=== PATIENT | male | born 1965 | race Caucasian/White ===

== ENCOUNTER → 2018-07-24 | Outpatient (REF) | payer MEDICAID ==
[2018-07-24 14:50] LABS: CREATININE FOR GFR 1.47 MG/DL (0.70-1.30)
[2018-07-24 14:51] LABS: ALBUMIN 3.3 GM/DL (3.2-5.2); CALCIUM LEVEL 8.3 MG/DL (8.5-10.1); GLOMERULAR FILTRATION RATE 53.1 (>56); PHOSPHORUS LEVEL 3.4 MG/DL (2.5-4.9); URIC ACID 6.1 MG/DL (3.5-7.2)
[2018-07-24 14:52] LABS: BASO # 0.1 10^3/uL (0.0-0.2); BASO % 0.5 % (0.0-1.0); EOS # 0.7 10^3/uL (0.0-0.50); EOS % 6.8 % (0.0-3.0); HEMATOCRIT 43.6 % (42.0-52.0); HEMOGLOBIN 14.3 g/dl (13.5-17.5); LYMPH # 1.3 10^3/uL (1.5-4.5); LYMPH % 13.8 % (24.0-44.0); MEAN CORPUSCULAR HEMOGLOBIN 32.2 pg (27.0-33.0); MEAN CORPUSCULAR HGB CONC 32.8 g/dl (32.0-36.5); MEAN CORPUSCULAR VOLUME 98.2 fl (80.0-96.0); MONO # 0.8 10^3/uL (0.0-0.8); MONO % 8.5 % (0.0-5.0); NEUTROPHILS # 6.8 10^3/uL (1.8-7.7); NEUTROPHILS % 69.8 % (36.0-66.0); PLATELET COUNT, AUTOMATED 235 10^3/uL (150-450); RED BLOOD COUNT 4.44 10^6/uL (4.30-6.10); WHITE BLOOD COUNT 9.7 10^3/uL (4.0-10.0)
[2018-07-24 14:59] LABS: APPEARANCE, URINE CLEAR (CLEAR); BACTERIA, URINE AUTO NEGATIVE (NEGATIVE); BILIRUBIN, URINE AUTO NEGATIVE (NEGATIVE); BLOOD, URINE BLOOD NEGATIVE (NEGATIVE); COLOR, URINE YELLOW (YELLOW); GLUCOSE, URINE (UA) AUTO NEGATIVE (NEGATIVE); KETONE, URINE AUTO NEGATIVE (NEGATIVE); LEUKOCYTE ESTERASE, URINE AUTO NEGATIVE (NEGATIVE); NITRITE, URINE AUTO NEGATIVE (NEGATIVE); PROTEIN, URINE AUTO NEGATIVE (NEGATIVE); RBC, URINE AUTO 0 /HPF (0-3); SPECIFIC GRAVITY URINE AUTO 1.019 (1.002-1.035); SQUAMOUS EPITHELIAL CELL UR AU 0 /HPF (0-6); UROBILINOGEN, URINE AUTO 0.2 mg/dL (0.0-2.0); WBC, URINE AUTO 0 /HPF (0-3)
== END ==
LOC: M LAB REF 13:26
PROVIDERS: ATTEND Internal Medicine Nephrology
DX: N18.3 Chronic kidney disease, stage 3 (moderate) (principal)

== ENCOUNTER → 2018-10-29 | Outpatient (REF) | payer OTHER, MEDICAID ==
[2018-10-29 20:39] LABS: BASO # 0.1 10^3/uL (0.0-0.2); BASO % 0.6 % (0.0-1.0); EOS # 0.4 10^3/uL (0.0-0.50); EOS % 4.3 % (0.0-3.0); HEMATOCRIT 39.4 % (42.0-52.0); LYMPH # 0.9 10^3/uL (1.5-4.5); LYMPH % 10.1 % (24.0-44.0); MEAN CORPUSCULAR HEMOGLOBIN 32.5 pg (27.0-33.0); MEAN CORPUSCULAR VOLUME 98.5 fl (80.0-96.0); MONO # 0.7 10^3/uL (0.0-0.8); MONO % 7.5 % (0.0-5.0); NEUTROPHILS # 6.7 10^3/uL (1.8-7.7); NEUTROPHILS % 77.2 % (36.0-66.0); PLATELET COUNT, AUTOMATED 246 10^3/uL (150-450); WHITE BLOOD COUNT 8.7 10^3/uL (4.0-10.0)
[2018-10-29 20:46] LABS: ALBUMIN 3.4 GM/DL (3.2-5.2); BILIRUBIN,TOTAL 0.3 MG/DL (0.2-1.0); CALCIUM LEVEL 8.2 MG/DL (8.5-10.1); CHOLESTEROL RISK RATIO 3.52 (<5); CREATININE FOR GFR 1.83 MG/DL (0.70-1.30); FREE T4 0.95 NG/DL (0.76-1.46); GLOMERULAR FILTRATION RATE 41.3 (>56); THYROID STIMULATING HORMONE 0.269 uIU/ML (0.358-3.740); TOTAL 25(OH) VITAMIN D 33.4 NG/ML (30.0-100.0); TOTAL PROTEIN 6.9 GM/DL (6.4-8.2)
[2018-10-29 21:22] LABS: HEMOGLOBIN A1c 5.7 %
== END ==
LOC: M LAB REF 18:32
PROVIDERS: ATTEND Nurse Practitioner Family
DX: Z13.9 Encounter for screening, unspecified (principal)

== ENCOUNTER 2019-08-31 12:12 | Emergency (ER) | payer OTHER ==
[~2019-08-31] VITALS: Ht 165.1 cm; Wt 65.9 kg
[2019-08-31 12:57] LABS: BASO # 0.1 10^3/uL (0.0-0.2); BASO % 0.6 % (0.0-1.0); EOS # 0.1 10^3/uL (0.0-0.5); EOS % 1.6 % (0.0-3.0); HEMATOCRIT 53.9 % (42.0-52.0); HEMOGLOBIN 17.7 g/dl (13.5-17.5); MEAN CORPUSCULAR HEMOGLOBIN 31.1 pg (27.0-33.0); MEAN CORPUSCULAR HGB CONC 32.8 g/dl (32.0-36.5); MEAN CORPUSCULAR VOLUME 94.6 fl (80.0-96.0); MONO # 0.5 10^3/uL (0.0-0.8); MONO % 6.7 % (0.0-5.0); NEUTROPHILS % 77.6 % (36.0-66.0); PLATELET COUNT, AUTOMATED 251 10^3/uL (150-450); WHITE BLOOD COUNT 7.7 10^3/uL (4.0-10.0)
[2019-08-31 13:08] LABS: INR 0.98; PARTIAL THROMBOPLASTIN TIME 27.9 SECONDS (25.0-38.4); PROTHROMBIN TIME 12.7 SECONDS (11.8-14.0)
[2019-08-31 13:30] LABS: CK-MB VALUE MASS 1.5 NG/ML (<3.6); CPK CREATINE PHOSPHOKINASE 73 U/L (39-308); MB/CK RELATIVE INDEX 2.05 (< OR =4); TROPONIN I < 0.02 NG/ML (< 0.10)
--- NOTE | 2019-08-31 13:32 | REP ---
Clinical: Chest pain . Comparison: None . Technique: Portable AP view. Findings: The mediastinum and cardiac silhouette are normal. The lung aviles are clear and without acute consolidation, effusion, or pneumothorax. The skeletal structures are intact and normal. Impression: 1. No acute cardiopulmonary process. Electronically Signed by Rl Dawkins MD 08/31/2019 01:23 P
[2019-08-31] MEDS ORDERED: METHADONE 10 MG TAB (S0109) PO ONE ×2 (14:30→18:00)
[2019-08-31] MEDS ORDERED: TIZA2TAB6 PO (14:47)
[2019-08-31] MEDS ORDERED: METO1TAB33 PO (14:47)
[2019-08-31] MEDS ORDERED: SYMB16INH INH (14:47)
[2019-08-31] MEDS ORDERED: MED REC COMMENT (14:47)
[2019-08-31] MEDS ORDERED: VENTAER INH (14:47)
[2019-08-31] MEDS ORDERED: NS 1,000 ML IV ONE ×2 (15:00→18:00)
[2019-08-31] MEDS ORDERED: ACETAMINOPHEN 500 MG TAB PO ONE (15:45)
--- NOTE | 2019-08-31 16:57 | REP ---
Clinical: Flank pain. Technique: Real time fontana scale ultrasound examination using curved array transducer. Findings: The patient is known to be status post right nephrectomy. Evaluation of the left kidney is limited due to overlying bowel gas. The kidney measures approximately 9.2 x 4.1 x 6.1 cm and there is a 5.8 x 4.4 x 2.7 cm upper pole hypodense area which cannot be further characterized. No obvious hydronephrosis or nephrolithiasis. Bladder appears normal and the left ureteral jet is identified. Impression: 1. Prior right nephrectomy. 2. Significantly limited evaluation of the left kidney and 5.8 cm upper pole left renal mass cannot definitively be excluded. Electronically Signed by Rl Dawkins MD 08/31/2019 04:49 P
[2019-08-31 17:53] LABS: CK-MB VALUE MASS < 1.0 NG/ML (<3.6); CPK CREATINE PHOSPHOKINASE 51 U/L (39-308); MB/CK RELATIVE INDEX 1.96 (< OR =4); TROPONIN I < 0.02 NG/ML (< 0.10)
[2019-08-31 19:18] LABS: D-DIMER QUANT 507.95 ng/ml (<500)
--- NOTE | 2019-08-31 19:33 | ECGEPIP ---
[facility] - ED Test Date: 2019-08-31 Pat Name: SELENA VILLANUEVA Department: Room: - Gender: Male Heel Emery Buffer: paty : 1965 Requested By: Archana Dowling Order Number: [id number] Reading MD: Archana Dowling Measurements Intervals [place] Rate: 109 P: 46 NC: 162 QRS: -28 QRSD: 86 T: 79 QT: 327 QTc: 442 Interpretive Statements SINUS TACHYCARDIA WITH FIRST DEGREE AV BLOCK BORDERLINE LEFT AXIS DEVIATION NONSPECIFIC ST & T-WAVE ABNORMALITY ABNORMAL RHYTHM ECG DELAYED R WAVE PROGRESSION NO PRIOR ECG FOR COMPARISON Electronically Signed on 08-31-2019 19:33:02 EDT by Archana Dowling
--- NOTE | 2019-08-31 19:43 | ECGEPIP ---
[facility] - ED Test Date: 2019-08-31 Pat Name: SELENA VILLANUEVA Department: Room: - Gender: Male Manager Security: sandy : 1965 Requested By: SANJUANA MCDERMOTT Order Number: [id number] Reading MD: Archana Dowling Measurements Intervals [place] Rate: 90 P: 38 MD: 168 QRS: -9 QRSD: 86 T: 65 QT: 371 QTc: 455 Interpretive Statements SINUS RHYTHM NONSPECIFIC T-WAVE ABNORMALITY BORDERLINE LEFT AXIS DEVIATION DELAYED R WAVE PROGRESSION CW 08/31/[address] T WAVE CHANGES Electronically Signed on 08-31-2019 19:42:53 EDT by Archana Dowling
[2019-08-31] MEDS ORDERED: METOPROLOL SUCC (TopROL XL) 100MG *XL* TAB PO ONE (20:15)
[2019-08-31 20:40] VITALS: BP 177/99
[2019-09-01] MEDS ORDERED: METO1TAB33 PO (00:10)
[2019-09-01 00:19] VITALS: BP 145/84
--- NOTE | 2019-09-01 09:18 | ED PDOC ---
Post-Departure Follow-Up estuardo castillo faxed formal report of renal us for fu Archana Soni MD September 01, 2019 09:18
== END 2019-09-01 00:33 | disposition home or self-care (01) ==
LOC: M ED 12:12
DX: R07.9 Chest pain, unspecified (principal); M79.10 Myalgia, unspecified site; R94.31 Abnormal electrocardiogram [ECG] [EKG]; I12.9 Hypertensive chronic kidney disease with stage 1 through stage 4 chronic kidney disease, or unspecified chronic kidney disease; I71.9 Aortic aneurysm of unspecified site, without rupture; J44.9 Chronic obstructive pulmonary disease, unspecified; Z90.5 Acquired absence of kidney; F17.210 Nicotine dependence, cigarettes, uncomplicated; Z79.51 Long term (current) use of inhaled steroids; Z79.899 Other long term (current) drug therapy
CPT/HCPCS: 36415; 71045; 76775; 80047; 81001; 82550; 82553; 84484; 85025; 85379; 85610; 85730; 86850; 86900; 86901; 93005; 93041; 94760; 96360; 96361; 99285; U0002

== ENCOUNTER 2023-04-16 02:21 | Emergency (ER) | payer OTHER ==
[~2023-04-16] VITALS: Ht 165.1 cm; Wt 65.7 kg
[~2023-04-16 02:21] MED LIST: MED REC COMMENT; METO1TAB33 PO; SYMB16INH INH; TIZA1TAB12 PO; VENTAER INH
[2023-04-16 04:01] LABS: BASO # 0.1 10^3/uL (0.0-0.2); BASO % 0.5 % (0.0-1.0); HEMOGLOBIN 14.4 g/dl (13.5-17.5); LYMPH % 10.2 % (24.0-44.0); MEAN CORPUSCULAR HEMOGLOBIN 30.9 pg (27.0-33.0); MEAN CORPUSCULAR HGB CONC 32.7 g/dl (32.0-36.5); MEAN CORPUSCULAR VOLUME 94.4 fl (80.0-96.0); MONO # 0.8 10^3/uL (0.0-0.8); MONO % 7.7 % (2.0-8.0); NEUTROPHILS % 71.4 % (36.0-66.0); PLATELET COUNT, AUTOMATED 225 10^3/uL (150-450); RED BLOOD COUNT 4.66 10^6/uL (4.30-6.10); WHITE BLOOD COUNT 9.8 10^3/uL (4.0-10.0)
[2023-04-16 04:05] LABS: VENOUS BASE EXCESS -1.4 (-2.0-2.0); VENOUS HCO3 25.3 MMOL/L (23.0-27.0); VENOUS O2 SATURATION 56.6 % (60.0-80.0); VENOUS PARTIAL PRESSURE O2 29.8 mmHg (30.0-50.0); VENOUS PH 7.322 UNITS (7.330-7.430); VENOUS STANDARD HCO3 22.2 MMOL/L; VENOUS TOTAL CO2 26.8 MMOL/L (24.0-28.0)
[2023-04-16 04:25] LABS: ALBUMIN 3.3 G/DL (3.2-5.2); ALKALINE PHOSPHATASE 83 U/L (46-116); ALT/SGPT 24 U/L (7.0-40); AST/SGOT 21 U/L (<34); BILIRUBIN,DIRECT 0.1 MG/DL (<0.4); BILIRUBIN,TOTAL 0.4 MG/DL (0.3-1.2); BLOOD UREA NITROGEN 23 MG/DL (9-23); CALCIUM LEVEL 8.7 MG/DL (8.5-10.1); CARBON DIOXIDE LEVEL 27 MMOL/L (20-31); CHLORIDE LEVEL 106 MMOL/L (98-107); CREATININE FOR GFR 1.14 MG/DL (0.70-1.30); GLOMERULAR FILTRATION RATE > 60.0 (>56); GLUCOSE, FASTING 100 MG/DL (60-100); POTASSIUM SERUM 4.7 MMOL/L (3.5-5.1); SODIUM LEVEL 141 MMOL/L (136-145); TOTAL PROTEIN 6.1 G/DL (5.7-8.2)
[2023-04-16 04:29] LABS: CPK CREATINE PHOSPHOKINASE 93 U/L (46-171); MB/CK RELATIVE INDEX 2.15 (< OR =4)
[2023-04-16 06:05] LABS: CK-MB VALUE MASS 2.5 NG/ML (<3.6)
[2023-04-16 06:06] LABS: MB/CK RELATIVE INDEX 3.01 (< OR =4)
[2023-04-16] MEDS ORDERED: methylPREDNISolone 125MG 2ML VIAL IV ONE (07:25)
[2023-04-16] MEDS: IPRATROPIUM 0.5MG/ALBUTEROL 2.5MG INH SOL UD 3ML (DUONEB) NEB SCH ×3 (07:56→09:13)
[2023-04-16] MEDS ORDERED: METOPROLOL SUCC (TopROL XL) 100MG *XL* TAB PO ONE (08:40)
[2023-04-16 09:14] VITALS: O2SAT 98
[2023-04-16 09:15] VITALS: BP 184/104
[2023-04-16 11:22] VITALS: BP 176/84; TEMP 98.6; O2SAT 97
== END 2023-04-16 11:09 | disposition home or self-care (01) ==
LOC: EDBD 02:21 → M ED 02:21
DX: J45.901 Unspecified asthma with (acute) exacerbation (principal); I10 Essential (primary) hypertension; I71.9 Aortic aneurysm of unspecified site, without rupture; Z90.5 Acquired absence of kidney; F17.200 Nicotine dependence, unspecified, uncomplicated; F11.10 Opioid abuse, uncomplicated; Z79.899 Other long term (current) drug therapy
CPT/HCPCS: 71045; 80048; 80076; 82550; 82553; 82803; 83605; 84484; 85025; 87040; 87486; 87581; 87633; 87798; 93005; 93041; 94640; 94760; 96374; 99285; J2930

== ENCOUNTER 2023-04-18 00:26 | Emergency (ER) | payer OTHER ==
[~2023-04-18] VITALS: Ht 165.1 cm; Wt 68.8 kg
[2023-04-18] MEDS ORDERED: NS 1,000 ML IV ONE (01:15)
[2023-04-18 01:31] LABS: BASO % 0.2 % (0.0-1.0); EOS % 0.1 % (0.0-3.0); HEMATOCRIT 46.1 % (42.0-52.0); HEMOGLOBIN 15.1 g/dl (13.5-17.5); LYMPH # 2.3 10^3/uL (1.5-5.0); LYMPH % 13.6 % (24.0-44.0); MEAN CORPUSCULAR HEMOGLOBIN 31.2 pg (27.0-33.0); MEAN CORPUSCULAR HGB CONC 32.8 g/dl (32.0-36.5); MEAN CORPUSCULAR VOLUME 95.2 fl (80.0-96.0); MONO # 1.3 10^3/uL (0.0-0.8); MONO % 7.6 % (2.0-8.0); NEUTROPHILS # 13.1 10^3/uL (1.5-8.5); NEUTROPHILS % 78.1 % (36.0-66.0); PLATELET COUNT, AUTOMATED 299 10^3/uL (150-450); RED BLOOD COUNT 4.84 10^6/uL (4.30-6.10); WHITE BLOOD COUNT 16.8 10^3/uL (4.0-10.0)
[2023-04-18] MEDS ORDERED: KETOROLAC 30 MG/ML 1ML VIAL IV ONE (02:25)
[2023-04-18] MEDS ORDERED: METHADONE 10MG TAB PO ONE (02:35)
[2023-04-18] MEDS ORDERED: METHADONE 5MG TAB PO ONE (02:35)
[2023-04-18] MEDS ORDERED: IPRATROPIUM 0.5MG/ALBUTEROL 2.5MG INH SOL UD 3ML (DUONEB) NEB ONE ×2 (02:45)
[2023-04-18] MEDS ORDERED: VALPROATE SOD INJ 1,000 MG in D5W 50 ML IV ONE (03:45)
[2023-04-18] MEDS ORDERED: DEPA500T2 PO (03:46)
[2023-04-18] MEDS ORDERED: METO1TAB33 PO (03:47)
[2023-04-18 04:20] VITALS: BP 184/98
[2023-04-18 04:48] LABS: ALBUMIN 3.3 G/DL (3.2-5.2); BILIRUBIN,TOTAL 0.5 MG/DL (0.3-1.2); CALCIUM LEVEL 8.2 MG/DL (8.5-10.1); CREATININE FOR GFR 1.31 MG/DL (0.70-1.30); GLOMERULAR FILTRATION RATE 59.6 (>56); MAGNESIUM LEVEL 2.5 MG/DL (1.8-2.4); POTASSIUM SERUM 4.1 MMOL/L (3.5-5.1)
[2023-04-18 05:30] VITALS: BP 180/62; TEMP 98.4; O2SAT 96
== END 2023-04-18 05:40 | disposition home or self-care (01) ==
LOC: M ED 00:26
DX: R56.9 Unspecified convulsions (principal); J45.901 Unspecified asthma with (acute) exacerbation; G89.29 Other chronic pain; M54.9 Dorsalgia, unspecified; I10 Essential (primary) hypertension; Z79.899 Other long term (current) drug therapy
CPT/HCPCS: 71045; 80047; 80053; 82550; 83605; 83735; 85025; 87486; 87581; 87633; 87798; 93005; 94640; 96361; 96365; 96366; 96375; 99284; J1885; S0109

== ENCOUNTER 2024-06-14 16:40 | Observation (INO) | payer OTHER ==
[~2024-06-14] VITALS: Ht 165.1 cm; Wt 64.2 kg
[~2024-06-14 16:40] MED LIST changes: +DEPA500T2 PO
[2024-06-14] MEDS ORDERED: METH10CO PO (17:16)
[2024-06-14 19:46] LABS: BASO % 0.5 % (0.0-1.0); EOS # 0.1 10^3/uL (0.0-0.5); EOS % 2.3 % (0.0-3.0); HEMATOCRIT 43.7 % (42.0-52.0); HEMOGLOBIN 14.2 g/dl (13.5-17.5); LYMPH # 1.2 10^3/uL (1.5-5.0); LYMPH % 28.5 % (24.0-44.0); MEAN CORPUSCULAR HEMOGLOBIN 30.9 pg (27.0-33.0); MEAN CORPUSCULAR HGB CONC 32.5 g/dl (32.0-36.5); MEAN CORPUSCULAR VOLUME 95.2 fl (80.0-96.0); MONO # 0.8 10^3/uL (0.0-0.8); MONO % 17.8 % (2.0-8.0); NEUTROPHILS # 2.2 10^3/uL (1.5-8.5); NEUTROPHILS % 50.7 % (36.0-66.0); PLATELET COUNT, AUTOMATED 198 10^3/uL (150-450); RED BLOOD COUNT 4.59 10^6/uL (4.30-6.10); WHITE BLOOD COUNT 4.3 10^3/uL (4.0-10.0)
[2024-06-14 19:53] LABS: ERYTHROCYTE SEDIMENTATION RATE 23 mm/hr (0-20)
[2024-06-14 19:59] LABS: INR 0.94; PARTIAL THROMBOPLASTIN TIME 28.4 SECONDS (24.8-34.2); PROTHROMBIN TIME 12.9 SECONDS (12.5-14.5)
[2024-06-14 20:08] LABS: LIPASE 18 U/L (12-53)
[2024-06-14 20:09] LABS: AMYLASE 74 U/L (30-118); OSMOLALITY SERUM 307 MOSM/KG (275-295)
[2024-06-14 20:10] LABS: ALBUMIN 3.7 G/DL (3.2-5.2); ALKALINE PHOSPHATASE 89 U/L (40-129); ALT/SGPT 36 U/L (7.0-40); AST/SGOT 81 U/L (<34); BILIRUBIN,DIRECT < 0.1 MG/DL (<0.4); BILIRUBIN,TOTAL 0.2 MG/DL (0.3-1.2); BLOOD UREA NITROGEN 61 MG/DL (9-23); C REACTIVE PROTEIN QUANTITATIV 1.39 MG/DL (<1.0); CALCIUM LEVEL 8.4 MG/DL (8.3-10.6); CARBON DIOXIDE LEVEL 26 MMOL/L (20-31); CHLORIDE LEVEL 103 MMOL/L (98-107); GLOMERULAR FILTRATION RATE 17.9 (>49); GLUCOSE, FASTING 83 MG/DL (74-106); MAGNESIUM LEVEL 2.1 MG/DL (1.8-2.4); PHOSPHORUS LEVEL 6.3 MG/DL (2.4-5.1); POTASSIUM SERUM 4.8 MMOL/L (3.5-5.1); SODIUM LEVEL 141 MMOL/L (136-145); TOTAL PROTEIN 6.9 G/DL (5.7-8.2)
[2024-06-14 21:18] LABS: KETONE, URINE AUTO RFX NEGATIVE (NEGATIVE); LEUKOCYTE ESTERASE UR AUTO RFX NEGATIVE (NEGATIVE); MUCUS, URINE RFX SMALL (NEGATIVE); NITRITE, URINE AUTO RFX NEGATIVE (NEGATIVE); RBC, URINE AUTO RFX 0 /HPF (0-3); SQUAM EPITHELIAL CELL UR AURFX 0 /HPF (0-6); WBC, URINE AUTO RFX 1 /HPF (0-3)
[2024-06-14] MEDS: NS 500 ML IV ONE (23:11)
[2024-06-14] MEDS: NS (Normal Saline) 0.9% 1,000 ML IV SCH (23:11)
[2024-06-14] MEDS ORDERED: LISI5TAB11 PO (23:19)
[2024-06-14] MEDS ORDERED: HOME MED LIST COMPLETE! XX SCH (23:20)
[2024-06-15] MEDS: NS (Normal Saline) 0.9% 1,000 ML IV SCH (01:39)
[2024-06-15 04:15] VITALS: BP 152/65; TEMP 97.5; O2SAT 96
[2024-06-15] MEDS: HEPARIN SOD (PORCINE) 5000UNITS/ML 1ML VIAL/SYRINGE SC SCH (06:00)
[2024-06-15 07:05] LABS: HEMATOCRIT 41.2 % (42.0-52.0); HEMOGLOBIN 13.1 g/dl (13.5-17.5); MEAN CORPUSCULAR HEMOGLOBIN 31.1 pg (27.0-33.0); MEAN CORPUSCULAR HGB CONC 31.8 g/dl (32.0-36.5); MEAN CORPUSCULAR VOLUME 97.9 fl (80.0-96.0); PLATELET COUNT, AUTOMATED 159 10^3/uL (150-450); RED BLOOD COUNT 4.21 10^6/uL (4.30-6.10); WHITE BLOOD COUNT 4.5 10^3/uL (4.0-10.0)
[2024-06-15 07:35] LABS: ALBUMIN 3.3 G/DL (3.2-5.2); BILIRUBIN,TOTAL 0.2 MG/DL (0.3-1.2); CREATININE FOR GFR 2.75 MG/DL (0.70-1.30); GLOMERULAR FILTRATION RATE 25.3 (>49); POTASSIUM SERUM 4.8 MMOL/L (3.5-5.1); TOTAL PROTEIN 6.4 G/DL (5.7-8.2)
[2024-06-15 07:59] LABS: PHOSPHORUS LEVEL 5.3 MG/DL (2.4-5.1)
== END 2024-06-15 09:00 | disposition left against medical advice (07) ==
LOC: M ED 16:40 → M ED INP 16:41
PROVIDERS: ADMIT Family Medicine; ATTEND Family Medicine
DX: N17.9 Acute kidney failure, unspecified (principal); Z90.5 Acquired absence of kidney; K76.89 Other specified diseases of liver; I10 Essential (primary) hypertension; G40.909 Epilepsy, unspecified, not intractable, without status epilepticus; J44.9 Chronic obstructive pulmonary disease, unspecified; F17.210 Nicotine dependence, cigarettes, uncomplicated; F11.10 Opioid abuse, uncomplicated; F14.10 Cocaine abuse, uncomplicated; Z79.899 Other long term (current) drug therapy

== ENCOUNTER → 2024-11-04 | Outpatient (CLI) | payer OTHER ==
[~2024-11-04] MED LIST changes: +LISI5TAB11 PO; +METH10CO PO
== END ==
LOC: M PLAIMG 10:10
PROVIDERS: ATTEND Internal Medicine Addiction Medicine
DX: I35.8 Other nonrheumatic aortic valve disorders (principal); I10 Essential (primary) hypertension